=== PATIENT | male | born 1970 | race Caucasian/White ===

== ENCOUNTER 2017-10-13 21:53 | Emergency (ER) | payer OTHER ==
[~2017-10-13] VITALS: Ht 180.3 cm; Wt 102.1 kg
[2017-10-13 21:58] VITALS: BP_SYST 150
[2017-10-13] MEDS ORDERED: LIDOCAINE 1%, 20 ML MDV 20 ML ONE (22:24)
[2017-10-13] MEDS ORDERED: LIDOCAINE 1% 10 MG/ML, 20 ML MDV INJ ONE (22:30)
[2017-10-13] MEDS ORDERED: DIPH-TET-PERTUS Vaccine 0.5 ML VIAL (ADACEL) I.M. ONE (22:30)
[2017-10-13] MEDS ORDERED: BACITRACIN 1 GM OINT TP ONE (22:45)
[2017-10-13 23:13] VITALS: BP_SYST 144
== END 2017-10-13 23:13 | disposition home or self-care (01) ==
LOC: SED 21:53
DX: S61.217A Laceration without foreign body of left little finger without damage to nail, initial encounter (principal); W01.0XXA Fall on same level from slipping, tripping and stumbling without subsequent striking against object, initial encounter; Y93.89 Activity, other specified; Y92.096 Garden or yard of other non-institutional residence as the place of occurrence of the external cause; Y99.8 Other external cause status
CPT/HCPCS: 12002; 90471; 90715; 99283; J2001